=== PATIENT | female | born 1990 | race Hispanic/Latino ===

== ENCOUNTER → 2025-04-24 | Outpatient (CLI) | payer BC ==
[~2025-04-24] MED LIST: IOHEXOL 350 MG/ML 100ML INFUS..BTL IV ONE
--- NOTE | 2025-04-28 14:41 | CARDIOLOGY ---
RAD REPORT: [facility] CT ANGIO RADIOLOGY REPORT: CORONARY CT ANGIOGRAPHY DATE: Apr 28, 2025 QUALITY: Excellent CLINICAL HISTORY AND INDICATION: [syncope ] TECHNIQUE: After obtaining a preliminary line technician image, contrast imaging performed on an [employer] [id number] scanner. A dedicated, limited window, coronary imaging protocol was used, with single breath-hold, retrospective ECG gating, and automated arrhythmia rejection. 100 cc of low osmolar contrast agent: Omnipaque 350 was delivered via a 18-gauge IV catheter in the right antecubital fossa, using a power injector and followed by 60 cc of normal saline bolus as a chaser. Collimated images were reformatted at 0.5 mm intervals, and sent to an offline independent workstation for interpretation, using 3D anatomic reconstructions: Curved multiplanar reconstructions, maximum intensity projections, and multiplanar imaging. 20 mg IV metoprolol was administered prior to scanning. 0.8 mg SL nitroglycerin was given. CORONARY ARTERY DESCRIPTIONS: The coronary arteries arise in normal position. Left main coronary artery: Normal caliber vessel that bifurcates into the LAD and LCx. No stenosis. Left anterior descending coronary artery: Normal caliber vessel and gives rise to diagonal and septal branches. No stenosis. Left circumflex coronary artery: Normal caliber, nondominant and gives rise to a large OM branch. No stenosis. Right coronary artery: Large, dominant vessel giving rise to the PL and PDA branches. No stenosis. CAD-RADs: 0, absence of CAD. Thoracic Aorta: Normal diameter. Leandra Bernardo MD Cardiovascular Disease [facility] LEANDRA BERNARDO MD Apr 28, 2025 14:41
== END | disposition home or self-care (01) ==
LOC: RAH 10:07
PROVIDERS: ATTEND Student in an Organized Health Care Education/Training Program
DX: Q24.5 Malformation of coronary vessels (principal)
CPT/HCPCS: 75574; J3490 ×2; Q9967

== ENCOUNTER → 2025-05-07 | Outpatient (CLI) | payer BC, SELFPAY ==
[2025-05-07 22:25] VITALS: PULSE 89; RESP 13
[2025-05-07 22:58] VITALS: PULSE 84; RESP 13
[2025-05-07 23:26] VITALS: PULSE 86; RESP 18
[2025-05-08] VITALS (11 sets, daily range): PULSE 81–100; RESP 12–16
== END | disposition home or self-care (01) ==
LOC: EDUNIT# 05-05 20:30 → SLP 20:25
PROVIDERS: ATTEND Family Medicine
DX: G47.33 Obstructive sleep apnea (adult) (pediatric) (principal)
CPT/HCPCS: 95810

== ENCOUNTER → 2025-08-13 | Outpatient (CLI) | payer BC ==
[2025-08-13 22:09] VITALS: PULSE 108; RESP 11
[2025-08-13 23:00] VITALS: PULSE 82; RESP 10
[2025-08-13 23:30] VITALS: PULSE 80; RESP 10
[2025-08-13 23:37] VITALS: PULSE 82; RESP 15
[2025-08-13 23:42] VITALS: PULSE 89; RESP 16
[2025-08-13 23:50] VITALS: PULSE 89; RESP 16
[2025-08-14] VITALS (16 sets, daily range): PULSE 81–92; RESP 11–19
== END | disposition home or self-care (01) ==
LOC: SLP 20:36
PROVIDERS: ATTEND Family Medicine
DX: G47.33 Obstructive sleep apnea (adult) (pediatric) (principal)
CPT/HCPCS: 95811